=== PATIENT | female | born 1965 | race Caucasian/White ===

== ENCOUNTER 2022-03-16 07:43 | Emergency (ER) | payer OTHER, SELFPAY ==
[2022-03-16 07:53] VITALS: BP 148/105; PULSE 97; RESP 18; TEMP 37; O2SAT 100
--- NOTE | 2022-03-16 08:07 | ED_ITS ---
HPI - Fever General: Chief Complaint: Fever Stated Complaint: cough Time Seen by Provider: 03/16/22 08:02 Source: patient Mode of arrival: ambulatory Limitations: no limitations History of Present Illness: See nursing assessment. Patient with cough and congestion and intermittent fever for the past 3 days. Patient works at [employer]. Sputum is clear. Patient denies any pain. She denies nausea vomiting or diarrhea. Associated symptoms: Deny abdominal pain, flank pain, chills, chest pain, headache(s), nausea or vomiting Review of Systems Const: Reports: fever(s); Denies: chills Eyes: Denies: change in vision ENMT: Denies: throat pain Card: Denies: chest pain or palpitations Resp: Reports: productive cough (Clear sputum); Denies: dyspnea or wheezing GI: Denies: abdominal pain, nausea or vomiting : Denies: flank pain Musc: Denies: neck pain or back pain Skin/Breast: Denies: rash or pruritus Neuro: Denies: headache(s) or numbness in extremities Psych: Denies: anxiety Ismael/Lymph: Denies: enlarged lymph nodes Physical Exam Narrative: EXAM NARRATIVE: Occasional nonproductive cough Const: COMMON NORMALS: no acute distress, patient oriented x3, no limitations and well nourished GENERAL APPEARANCE: cooperative HENMT: COMMON NORMALS: normocephalic and atraumatic HEAD & SCALP: normocephalic and atraumatic FACE & SINUS: normal facial exam Eye: COMMON NORMALS: EOMs intact bilaterally Neck/C-Spine: COMMON NORMALS: full ROM, no lymphadenopathy, supple and no meningeal signs GENERAL: Yes normal visual inspection Lymph: LYMPHATIC: no lymphadenopathy noted Chest: COMMONS NORMALS: normal inspection of the chest and normal palpation of entire chest wall CHEST: No Ecchymosis present and No rash Resp: COMMON NORMALS: normal respiratory effort, No retractions and clear to auscultation bilaterally EFFORT & INSPECTION: No respiratory distress AUSCULTATION: clear to auscultation bilaterally Cardio: COMMON NORMALS: regular rate, regular rhythm and Peripheral pulses 2+ throughout JUGULAR VENOUS DISTENTION: no JVD RATE: regular rate RHYTHM: regular rhythm PERIPHERAL PULSES: Peripheral pulses 2+ throughout GI: COMMON NORMALS: Normal to inspection, nondistended, normoactive bowel sounds present and non-tender : COMMON NORMALS: Yes no CVA tenderness BLADDER/KIDNEY EXAM: Yes no CVA tenderness Back/Pelvis: COMMON NORMALS: no CVA tenderness Extremity: COMMON NORMALS: normal to inspection, full ROM and capillary refill normal Neuro: COMMON NORMALS: patient oriented x3, CN's II-XII intact bilaterally, no focal motor deficits and no sensory deficits noted MENINGEAL SIGNS: Yes no meningeal signs Psych: COMMON NORMALS: mental status grossly normal and Normal thought process present THOUGHT PROCESS: Normal thought process present Skin: COMMON NORMALS: no rashes or lesions noted and no wounds GENERAL SKIN EXAM: no rashes or lesions noted Course Vital Signs: Vital signs: Vital Signs Temperature 98.6 F 03/16/22 07:53 Pulse Rate 89 03/16/22 08:46 Respiratory Rate 16 03/16/22 08:46 Blood Pressure 132/88 03/16/22 08:46 Pulse Oximetry 94 03/16/22 08:46 MDM - Fever Medical Decision Making Acute bronchitis versus pneumonia. Possible influenza versus COVID. Patient states she is up-to-date on her COVID vaccines We will treat with IV Rocephin and IV Zithromax for treatment of community- acquired pneumonia Lab Data 03/16/22 08:43 03/16/22 08:43 Radiology Impressions Chest X-Ray 03/16/22 08:06 IMPRESSION: Lateral left mid lung zone airspace opacity. Pneumonitis is difficult to exclude. Clinical correlation is recommended. Laboratory Results WBC 4.6 10^3/uL (4.0-10.0) 03/16/22 08:43 RBC 4.78 10^6/uL (4.1-5.3) 03/16/22 08:43 Hgb 14.1 g/dL (11.5-15.3) 03/16/22 08:43 Hct 43.3 % (37.0-47.0) 03/16/22 08:43 MCV 90.6 fl (81-99) 03/16/22 08:43 MCH 29.5 pg (28.0-34.0) 03/16/22 08:43 MCHC 32.6 g/dL (30.0-36.0) 03/16/22 08:43 RDW 11.9 % (12.1-15.1) L 03/16/22 08:43 Plt Count 238 10^3/cmm (130-400) 03/16/22 08:43 MPV 9.8 fL (7.4-10.4) 03/16/22 08:43 Neut % (Auto) 75.7 % 03/16/22 08:43 Lymph % (Auto) 14.5 % 03/16/22 08:43 [place] % (Auto) 8.5 % 03/16/22 08:43 Eos % (Auto) 0.2 % 03/16/22 08:43 Baso % (Auto) 0.7 % 03/16/22 08:43 Neut # (Auto) 3.49 10^3/uL (1.8-7.7) 03/16/22 08:43 Lymph # (Auto) 0.7 10^3/uL (0.8-4.8) L 03/16/22 08:43 [place] # (Auto) 0.4 10^3/uL (0.2-0.9) 03/16/22 08:43 Eos # (Auto) 0.0 10^3/uL (0.0-0.8) 03/16/22 08:43 Baso # (Auto) 0.0 10^3/uL (0.0-0.1) 03/16/22 08:43 Nucleated RBC % (auto) 0 % 03/16/22 08:43 Nucleated RBCs # 0.0 /100WBC 03/16/22 08:43 Sodium 137 mmol/L (136-145) 03/16/22 08:43 Potassium 3.5 mmol/L (3.5-5.1) 03/16/22 08:43 Chloride 100 mmol/L (98-107) 03/16/22 08:43 Carbon Dioxide 25 mmol/L (22-29) 03/16/22 08:43 Anion Gap 15.5 (5-19) 03/16/22 08:43 BUN 13 mg/dL (6-20) 03/16/22 08:43 Creatinine 0.6 mg/dL (0.5-0.9) 03/16/22 08:43 GFR Calculation 102.7 mL/min (90-130) 03/16/22 08:43 Glucose 111 mg/dL (65-115) 03/16/22 08:43 Calculated Osmolality 285 mOsm/kg (285-295) 03/16/22 08:43 Calcium 9.9 mg/dL (8.5-10.5) 03/16/22 08:43 Influenza Type A Ag negative (Negative) 03/16/22 Unknown Influenza Type B Ag negative (Negative) 03/16/22 Unknown SARS-CoV-2 Ag (Rapid) negative (Negative) 03/16/22 Unknown Imaging Data CXR: My impression: Mild left lower lobe infiltrate consistent with early pneumonia. Radiologist's impression: Ordering Provider/Ordering MD: Kenan Walsh MD Date of Service: 03/16/22 Procedure(s): XR chest 1V portable [id number] Accession Number(s): [id number] Report Number: [id number] PROCEDURE INFORMATION: Exam: XR Chest Exam date and time: 03/16/2022 8:11 AM Age: 56 years old Clinical indication: Cough TECHNIQUE: Imaging protocol: Radiologic exam of the chest. Views: 1 view. Other technique: Frontal portable upright view of the chest. COMPARISON: No relevant prior studies available. FINDINGS: Lungs: Lateral left mid lung zone airspace opacity. The pulmonary vasculature is normal. The lungs are otherwise peripherally clear bilaterally. Pleural spaces:? No pleural effusion. No pneumothorax. Heart/Mediastinum: The heart is normal in size and contour. Bones/joints: Mild rightward thoracic and leftward thoracolumbar spinal curvature appear XR/XR chest 1V portable [id number] IMPRESSION: Lateral left mid lung zone airspace opacity. Pneumonitis is difficult to exclude. Clinical correlation is recommended. ? Dictated By: Bruno Rocha MD Signed By: Bruno Rocha MD Signed Date/Time: 03/16/22918 Discharge Plan Discharge Patient Disposition: Home Clinical Impression: Community acquired pneumonia Qualifiers: Laterality: left Lung location: lower lobe of lung Qualified Code(s): J18.9 - Pneumonia, unspecified organism Condition: Stable Prescriptions: New Zithromax Z-Edu 250 mg tablet See Rx Instructions .ROUTE .COMPLEX Qty: 6 0RF Rx Instructions: take 500 mg today (day 1), then 250 mg for 4 days (days 2-5) cephalexin 500 mg capsule 500 mg PO QID 7 Days Qty: 28 0RF Rx Instructions: for infection Discharge Orders: Discharge ED (Routine); Ordered 03/16/22 Ordered By: Kenan Walsh Referrals: [facility], [Primary Care Provider] - Discharge Activity: Increase activity as tolerated Patient Instructions: Community Acquired Pneumonia (ED), Opioid Safety, Pain Management Activity Restrictions/Additional Instructions: Rest. Start cephalexin and Z-Edu antibiotics in approximately 16 hours. Follow-up with family doctor next week for recheck. 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
[2022-03-16 08:46] VITALS: BP 132/88; PULSE 89; RESP 16; O2SAT 94
[2022-03-16 09:08] LABS: Basophils % 0.7 %; Eosinophils % 0.2 %; Hematocrit 43.3 % (37.0-47.0); Hemoglobin 14.1 g/dL (11.5-15.3); Lymphocytes # 0.7 10^3/uL (0.8-4.8); Lymphocytes % 14.5 %; Mean Corpuscular HGB Conc 32.6 g/dL (30.0-36.0); Mean Corpuscular Hemoglobin 29.5 pg (28.0-34.0); Mean Corpuscular Volume 90.6 fl (81-99); Mean Platelet Volume 9.8 fL (7.4-10.4); Monocytes # 0.4 10^3/uL (0.2-0.9); Monocytes % 8.5 %; Neutrophils # 3.49 10^3/uL (1.8-7.7); Neutrophils % 75.7 %; Nucleated Red Blood Cells % 0 %; Platelet Count 238 10^3/cmm (130-400); Red Blood Count 4.78 10^6/uL (4.1-5.3); Red Cell Distribution Width 11.9 % (12.1-15.1); White Blood Count 4.6 10^3/uL (4.0-10.0)
[2022-03-16 09:13] LABS: Influenza A by IFA negative (Negative); Influenza B by IFA negative (Negative); SARS Covid-2 Antigen negative (Negative)
[2022-03-16] MEDS: cefTRIAXone 1,000 MG in sodium chloride 0.9% (plus) 50 ML 100 MG IV (09:19)
[2022-03-16 09:29] LABS: Anion Gap 15.5 (5-19); Blood Urea Nitrogen 13 mg/dL (6-20); Calcium 9.9 mg/dL (8.5-10.5); Carbon Dioxide 25 mmol/L (22-29); Chloride 100 mmol/L (98-107); Glomerular Filtration Rate 102.7 mL/min (90-130); Glucose 111 mg/dL (65-115); Osmolality Calculated 285 mOsm/kg (285-295); Potassium 3.5 mmol/L (3.5-5.1); Sodium 137 mmol/L (136-145)
[2022-03-16] MEDS: azithromycin 500 MG in sodium chloride 0.9% 250 ML 250 MG IV (09:54)
[2022-03-16 10:39] VITALS: BP 132/88; PULSE 89; RESP 16; O2SAT 94
== END 2022-03-16 10:41 | disposition home or self-care (01) ==
PROVIDERS: Emergency Provider Family Medicine
DX: J18.9 Pneumonia, unspecified organism (principal); Z20.822 Contact with and (suspected) exposure to COVID-19
CPT/HCPCS: 36415; 71045; 80048; 85025; 87040; 87426; 87804; 96365; 96367; 99284; J0456; J0696; J7050

== ENCOUNTER → 2022-11-01 08:19 | Outpatient (BNVA) | payer MEDICAID, SELFPAY | PROVIDERS: Visit Provider Family Medicine | DX: Z12.39 Encounter for other screening for malignant neoplasm of breast (principal); G25.9 Extrapyramidal and movement disorder, unspecified; I63.9 Cerebral infarction, unspecified; Z12.11 Encounter for screening for malignant neoplasm of colon; Z12.4 Encounter for screening for malignant neoplasm of cervix | CPT/HCPCS: 80053; 80061; 80307; 81000; 83036; 84439; 84443; 85025 ==

== ENCOUNTER 2022-12-08 13:14 | Outpatient (CLI) | payer MEDICAID, SELFPAY ==
--- NOTE | 2022-12-08 13:31 | MM_ITS ---
WS: [id number] BILATERAL 3D TOMOSYNTHESIS DIGITAL SCREENING MAMMOGRAPHY WITH CAD CLINICAL INFORMATION: screening HISTORY: Screening mammogram. No current complaints. COMPARISON: None. TECHNIQUE: Bilateral CC and MLO views. FINDINGS: Scattered fibroglandular densities bilaterally. Partially obscured ovoid mass lower inner LEFT breast measuring 2.9 x 3.3 cm. Recommend LEFT diagnostic mammography and ultrasound in further evaluation. A few incidental punctate calcifications. IMPRESSION: MM/[place] [id number] BI-RADS: 0-Incomplete: Need additional imaging evaluation FOLLOW UP: Need Additional Imaging Recommend LEFT diagnostic mammography and ultrasound in further evaluation.
== END 2022-12-08 13:15 | disposition home or self-care (01) ==
PROVIDERS: Visit Provider Family Medicine
DX: Z12.31 Encounter for screening mammogram for malignant neoplasm of breast (principal)
CPT/HCPCS: 77063; 77067

== ENCOUNTER 2022-12-15 14:24 | Outpatient (CLI) | payer MEDICAID, SELFPAY ==
--- NOTE | 2022-12-15 14:30 | MR_ITS ---
WS: [id number] MRI HEAD WITH CONTRAST TECHNIQUE: Sagittal T1, T2 axial, T2 axial FLAIR, axial susceptibility weighted imaging, axial diffus ion weighted images, and coronal T2 images were obtained. Pre and post-T1 axial and post T1 coronal i mages. ADC and FSPGR images. CLINICAL INFORMATION: movement disorder, CVA COMPARISON: None. FINDINGS: No evidence of restricted diffusion to suggest acute ischemia. Ventricular system and basilar cistern s are patent. Mild small vessel changes. Moderate parenchymal volume loss. Normal posterior fossa. No rmal vascular flow voids at the skull base. No extra-axial fluid collections. No evidence of mass or mass effect. Mucosal thickening LEFT maxillary sinus. Mastoid air cells are well aerated. Normal posterior nasopha rynx and parapharyngeal fat. Normal optic chiasm and pituitary infundibulum. Moderate symmetric atrop hy temporal lobes and hippocampal formations. Incidental cavum septum pellucidum. No hemosiderin on s usceptibly weighted images. No abnormal gadolinium enhancement. Normal dural venous sinuses. IMPRESSION: 1. No evidence of restricted diffusion to suggest acute ischemia. 2. Mild small vessel changes with moderate parenchymal volume loss. 3. Moderate symmetric atrophy temporal lobes and hippocampal formations. 4. No hemosiderin on susceptibility-weighted images. 5. Mucosal thickening LEFT maxillary sinus.
[2022-12-15] MEDS: gadobenate dimeglumine 20 mL vial IV (15:16)
== END 2022-12-15 14:25 | disposition home or self-care (01) ==
PROVIDERS: Visit Provider Family Medicine
DX: G25.9 Extrapyramidal and movement disorder, unspecified (principal)
CPT/HCPCS: 70553; A9577

== ENCOUNTER 2023-01-11 15:01 | Outpatient (CLI) | payer MEDICAID, SELFPAY ==
--- NOTE | 2023-01-11 15:11 | MM_ITS ---
WS: [id number] LEFT 3D TOMOSYNTHESIS DIGITAL MAMMOGRAPHY WITH CAD CLINICAL INFORMATION: ABNORMAL MAMMO HISTORY: Additional views COMPARISON: 12/08/2022 TECHNIQUE: 3 views of the left breast were obtained. FINDINGS: Scattered fibroglandular densities of the left breast. Again seen is the partially obscured ovoid mas s lower inner LEFT breast measuring 3.0 x 3.3 cm. Ultrasound of this area is pending. No other signif icant changes. ULTRASOUND BREAST LEFT TECHNIQUE: Ultrasound left breast focused area of concern. CLINICAL INFORMATION: ABNORMAL MAMMO FINDINGS: Ultrasound LEFT breast lower inner quadrant. In the area of concern, at the 6 o'clock position, there is a 3.2 x 3.1 x 1.5 cm solid hypoechoic lesion 1 cm from the nipple. This corresponds to the mammog raphic findings and is suspicious. Recommend further evaluation with ultrasound-guided biopsy. IMPRESSION: MM/[place] [id number] BI-RADS: 5-Highly Suggestive of Malignancy FOLLOW UP: US Guided Biopsy Recommended
--- NOTE | 2023-01-11 15:30 | US_ITS ---
WS: [id number] LEFT 3D TOMOSYNTHESIS DIGITAL MAMMOGRAPHY WITH CAD CLINICAL INFORMATION: ABNORMAL MAMMO HISTORY: Additional views COMPARISON: 12/08/2022 TECHNIQUE: 3 views of the left breast were obtained. FINDINGS: Scattered fibroglandular densities of the left breast. Again seen is the partially obscured ovoid mas s lower inner LEFT breast measuring 3.0 x 3.3 cm. Ultrasound of this area is pending. No other signif icant changes. ULTRASOUND BREAST LEFT TECHNIQUE: Ultrasound left breast focused area of concern. CLINICAL INFORMATION: ABNORMAL MAMMO FINDINGS: Ultrasound LEFT breast lower inner quadrant. In the area of concern, at the 6 o'clock position, there is a 3.2 x 3.1 x 1.5 cm solid hypoechoic lesion 1 cm from the nipple. This corresponds to the mammog raphic findings and is suspicious. Recommend further evaluation with ultrasound-guided biopsy. IMPRESSION: US/[place] [id number] BI-RADS: 5-Highly Suggestive of Malignancy FOLLOW UP: US Guided Biopsy Recommended
== END 2023-01-11 15:02 | disposition home or self-care (01) ==
PROVIDERS: PCP Family Medicine; Visit Provider Family Medicine
DX: R92.8 Other abnormal and inconclusive findings on diagnostic imaging of breast (principal); N63.24 Unspecified lump in the left breast, lower inner quadrant
CPT/HCPCS: 76641; 77061; G0279

== ENCOUNTER → 2023-02-16 15:47 | Outpatient (BNVA) | payer MEDICAID, SELFPAY | PROVIDERS: PCP Family Medicine; Visit Provider Family Medicine | DX: Z12.4 Encounter for screening for malignant neoplasm of cervix (principal) | CPT/HCPCS: 87624 ==

== ENCOUNTER 2023-04-04 12:21 | Outpatient (CLI) | payer MEDICAID, SELFPAY ==
--- NOTE | 2023-04-04 12:26 | US_ITS ---
WS: [id number] ULTRASOUND-GUIDED LEFT BREAST BIOPSY CLINICAL INFORMATION: L BREAST MASS FINDINGS: The procedure including risks, benefits, and complications were discussed with the patient who agreed to proceed. Using sterile technique patient was prepped and draped in the usual sterile fashion. Aft er 1% lidocaine utilizing real-time ultrasound guidance 5 14-gauge cores were obtained of the LEFT br east lesion at the 6 o'clock position, 1 cm from the nipple. Subsequently a titanium clip was placed in the biopsy cavity. No immediate complications. Pathology demonstrates Left breast, 6:00 position, 1 cm from nipple, needle core biopsy: 1. Benign breast parenchyma with focal fibroadenomatoid features and mild stromal fibrosis/hyalinizat ion. 2. No atypia or malignancy is identified. IMPRESSION: 1. Uncomplicated ultrasound-guided LEFT breast biopsy. 2. The pathology demonstrates benign breast parenchyma with focal fibroadenomatoid features. No atyp ia or malignancy. 3. Considering the size of the lesion measuring up to 3.5 cm, and risk of undersampling, consider [place] rg[facility] consultation for resection. 4. Otherwise recommend 6-month follow-up LEFT breast diagnostic mammography and ultrasound to [facility]. US/[place] [id number] BI-RADS: 3-Probably Benign FOLLOW UP: 6 Month Follow-up *The pathology is benign, however considering the large size of the lesion and risk of biopsy undersampling, consider surgical consultation for resection.
== END 2023-04-04 12:22 | disposition home or self-care (01) ==
LOC: RAD 12:21
PROVIDERS: PCP Family Medicine; Visit Provider Family Medicine
DX: D24.2 Benign neoplasm of left breast (principal); N60.32 Fibrosclerosis of left breast
CPT/HCPCS: 19083; 88305

== ENCOUNTER → 2023-04-26 15:12 | Outpatient (BNVA) | payer MEDICAID, SELFPAY | PROVIDERS: PCP Family Medicine; Visit Provider Obstetrics & Gynecology | DX: R10.2 Pelvic and perineal pain (principal); Z90.710 Acquired absence of both cervix and uterus | CPT/HCPCS: 76830 ==

== ENCOUNTER → 2023-05-07 08:14 | Outpatient (BNVA) | payer MEDICAID, SELFPAY | PROVIDERS: PCP Family Medicine; Visit Provider Obstetrics & Gynecology | DX: Z01.818 Encounter for other preprocedural examination (principal) | CPT/HCPCS: 81025 ==

== ENCOUNTER → 2023-05-16 07:56 | Outpatient (BNVA) | payer MEDICAID, SELFPAY | PROVIDERS: PCP Family Medicine; Visit Provider Obstetrics & Gynecology | DX: Z01.818 Encounter for other preprocedural examination (principal); R87.619 Unspecified abnormal cytological findings in specimens from cervix uteri | CPT/HCPCS: 81025 ==

== ENCOUNTER 2023-07-12 14:33 | Outpatient (CLI) | payer MEDICAID, SELFPAY | END 2023-07-12 14:34 | disposition home or self-care (01) | LOC: LAB 14:35 | PROVIDERS: PCP Family Medicine; Visit Provider Psychiatry & Neurology Neurology | DX: R07.9 Chest pain, unspecified (principal); I63.9 Cerebral infarction, unspecified; G25.9 Extrapyramidal and movement disorder, unspecified; R01.1 Cardiac murmur, unspecified; E78.5 Hyperlipidemia, unspecified; F25.9 Schizoaffective disorder, unspecified; R94.31 Abnormal electrocardiogram [ECG] [EKG]; Z82.49 Family history of ischemic heart disease and other diseases of the circulatory system; I27.20 Pulmonary hypertension, unspecified | CPT/HCPCS: 81271; 93005 ==

== ENCOUNTER 2023-07-18 14:06 | Outpatient (CLI) | payer MEDICAID, SELFPAY ==
--- NOTE | 2023-07-18 14:45 | USCV_ITS ---
Yoselin Varghese Age: 57 Gender: F : 1965 Exam Date: 07/18/2023 14:38 Ordering Phys: Fany Saini MD ([email or web address]) Technologist: JAZMIN [place] [facility] [place] Indication: MURMUR BP: 136 / 80 HR: 71 Rhythm: Sinus Technical Quality: Adequate MEASUREMENTS (Male / Female) Normal Values 2D ECHO LV Diastolic Diameter PLAX 2.9 cm 4.2 - 5.9 / 3.9 - 5.3 cm IVS Diastolic Thickness 1.4 cm 0.6 - 1.0 / 0.6 - 0.9 cm IVS Systolic Thickness 1.5 cm LVPW Diastolic Thickness 1.3 cm 0.6 - 1.0 / 0.6 - 0.9 cm LVPW Systolic Thickness 2.1 cm LVOT Diameter 1.9 cm LV Ejection Fraction 2D Teich 63.7 % LV Ejection Fraction MOD 2C 52.1 % LV Ejection Fraction 2C AL 53.4 % LA Diameter 3.5 cm RA Systolic Volume 4C AL 15.7 ml RA Systolic Volume 4C MOD 15.6 ml LA Sys Volume AL 11.3 cm cubed LA Sys Volume Index AL 6.4 cm cubed/m squared Aorta at Sinotubular Diameter 2.3 cm IVC Diameter 1.2 cm M-MODE LA Ao Ratio MM 1.4 AV Cusp Separation MM 1.3 cm DOPPLER AV Peak Velocity 163.0 cm/s LVOT Peak Velocity 101.0 cm/s AV Area Cont Eq vti 2.2 cm squared AV Area Cont Eq pk 1.8 cm squared MV Peak Velocity 102.0 cm/s MV Area PHT 4.1 cm squared Mitral E to A Ratio 0.7 TR Peak Velocity 191.5 cm/s TR Peak Gradient 14.7 mmHg TR Mean Velocity 177.0 cm/s TR Mean Gradient 12.7 mmHg TR Velocity Time Integral 59.5 cm TV Peak E Velocity 48.0 cm/s Right Atrial Pressure 3.0 mmHg Pulmonary Artery Systolic Pressu 17.7 mmHg PV Peak Velocity 108.0 cm/s RV Ejection Time 0.4 s FINDINGS Left Ventricle Normal left ventricular size and systolic function, EF 64%.no regional wall motion abnormalities. Mild left ventricular hypertrophy. Grade I/IV diastolic dysfunction (abnormal relaxation filling pattern), normal to mildly elevated filling pressures. Right Ventricle The right ventricle is normal in size and function. Right Atrium The right atrium is normal in size. Left Atrium Mildly increased left atrial size. Mitral Valve No gross abnormalities noted Aortic Valve No gross abnormalities noted Tricuspid Valve No gross abnormalities noted Pulmonic Valve Trace pulmonary valve regurgitation. Pericardium Normal pericardium without effusion. Aorta Normal ascending aorta dimension. IVC The inferior vena cava appears normal. CONCLUSIONS Normal left ventricular size and systolic function, EF 64%.no regional wall motion abnormalities. Mild left ventricular hypertrophy. Grade I/IV diastolic dysfunction (abnormal relaxation filling pattern), normal to mildly elevated filling pressures. Mildly increased left atrial size. No intracardiac masses. There is no pericardial effusion. No similar previous studies are available for comparison Dr Fany Saini MD [facility] (Electronically Signed) Final Date: 27 July 2023 23:31 S
== END 2023-07-18 14:07 | disposition home or self-care (01) ==
LOC: RAD 14:07
PROVIDERS: PCP Family Medicine; Visit Provider Internal Medicine Cardiovascular Disease
DX: R94.31 Abnormal electrocardiogram [ECG] [EKG] (principal); R01.1 Cardiac murmur, unspecified
CPT/HCPCS: 93306

== ENCOUNTER 2023-07-19 09:56 | Outpatient (CLI) | payer MEDICAID, SELFPAY ==
--- NOTE | 2023-07-19 | ECG_ITS ---
[facility] Test Date: 2023-07-19 Pat Name: Yoselin Varghese Department: Room: Gender: Female Recruiting Intern: : 1965 Requested By: Fany Saini Order Number: [id number] Cuco MD: Fany Saini M.D. Interpretive Statements NAME OF STUDY: LEXISCAN SESTAMIBI STRESS TEST INDICATION: Abnormal EKG; Premature ASHD PROCEDURE: At the baseline, the EKG revealed normal sinus rhythm with poor R wave progression. The baseline heart was 67 bpm with a blood pressue of 134/84 mm of Hg Lexiscan was infused over a period of 20 seconds. A total of 0.4 milligrams of Lexiscan was infused. The stress phase was continued for a total of 5 minutes. Heart rate at the end of the stress phase was 83 bpm with a blood pressure 137/88 mm of Hg. The EKG at the peak infusion revealed no significant changes. Sestamibi was injected 20 seconds after the Lexiscan infusion. Heart rate at the end of the recovery phase was 94 bpm with a blood pressure of 118/78 mm of Hg. CONCLUSION: 1. No significant EKG changes with the LexiScan infusion 2. No LexiScan induced chest pain or cardiac arrhythmia 3. Normal blood pressure and heart rate response 4. Sestamibi/sestamibi perfusion scan pending; see separate report. Electronically Signed On 07-30-2023 23:03:07 CDT by Fany Saini M.D. [id number]
[2023-07-19 10:10] VITALS: BMI 27.6
--- NOTE | 2023-07-19 10:14 | NMCV_ITS ---
NM wendy perf SPECT r/s* [id number] Yoselin Varghese Age: 57 Gender: F : 1965 Exam Date: 07/19/2023 10:59 Ordering Phys: Fany Saini MD ([email or web address]) Technologist: LAZARO Hennessy Exam Location: [facility] Indications: CORONARY ANGIOPLASTY STATUS STRESS TEST [facility] IMAGE PROTOCOL Rest/Stress 1 Lexiscan Day Radiopharmaceutical Dose (mCi) Administration Site Administered by Rest: Tc-99m 10.3 IV LAZARO Hennessy Sestamibi Stress:Tc-99m 32.5 IV LAZARO Hennessy Sestamibi Rest: 19-Jul-2023 60 Discovery 630 Stress: 19-Jul-2023 30 Discovery 630 0.4mg Lexiscan. Images obtained in supine and prone position. SPECT RESULTS Technical Quality: Excellent Raw Data Analysis: Normal Image Corrections: No attenuation or motion correction applied Summed Stress Score: 2 Summed Rest Score: 2 Summed Difference Score: 0 PERFUSION FINDINGS A small area of slightly decreased tracer uptake was noted in the apical lateral and LV apex. No significant reversibility was noted in this region FUNCTIONAL RESULTS (calculated via Gated SPECT) Stress Image LV EF (%): 69 Stress EDV (mL):67 TID: 1.09 Stress ESV (mL):21 FUNCTIONAL FINDINGS: Segmental wall motion analysis revealing no gross wall motion abnormalities IMPRESSIONS 1. Myocardial perfusion imaging revealing a small area of persistent decreased tracer uptake involving the apical lateral and apex of the left ventricle, suggesting myocardial scarring versus attrition artifact. 2. Normal LV ejection fraction of 69%. 3. LV wall motion analysis revealing no gross wall motion abnormalities. 4. Normal LV volume Low probability for coronary ischemia, based on the above findings Dr Fany Saini MD [facility] (Electronically Signed) Final Date: 19 July 2023 21:20 S
[2023-07-19] MEDS: regadenoson 0.4 Mg/5 ml Syringe 0.400000000000000022 MG IVP (11:55)
[2023-07-19 12:51] VITALS: BP 118/78; PULSE 62
== END 2023-07-19 09:57 | disposition home or self-care (01) ==
LOC: CDL 09:57
PROVIDERS: PCP Family Medicine; Visit Provider Internal Medicine Cardiovascular Disease
DX: R94.31 Abnormal electrocardiogram [ECG] [EKG] (principal)
CPT/HCPCS: 36415; 78452; 93017; 96374; A9500; J2785

== ENCOUNTER 2023-09-06 07:32 | Emergency (ER) | payer MEDICAID, SELFPAY ==
[2023-09-06 07:42] VITALS: BP 159/94; PULSE 60; TEMP 36.7; O2SAT 98; BMI 27.3
--- NOTE | 2023-09-06 08:02 | XR_ITS ---
WS: [id number] XR tibia fibula RT 2V [id number] REASON FOR EXAM: pain/bruising FINDINGS: The right tibia and fibula are intact without fracture or periosteal reaction. No focal bone lesion. No soft tissue abnormality. XR/XR tibia fibula RT 2V [id number] IMPRESSION: No significant abnormality.
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
[2023-09-06 09:00] LABS: Basophils # 0.1 10^3/uL (0.0-0.1); Basophils % 1.5 %; Eosinophils # 0.1 10^3/uL (0.0-0.8); Lymphocytes # 1.8 10^3/uL (0.8-4.8); Lymphocytes % 43.5 %; Mean Corpuscular HGB Conc 32.3 g/dL (30-55); Mean Corpuscular Hemoglobin 30.6 pg (27-33); Mean Corpuscular Volume 94.7 fl (85-98); Mean Platelet Volume 9.5 fL (7.4-10.4); Monocytes # 0.3 10^3/uL (0.2-0.9); Monocytes % 6.6 %; Neutrophils # 1.88 10^3/uL (1.8-7.7); Neutrophils % 46.2 %; Nucleated Red Blood Cells % 0 %; Platelet Count 241 10^3/cmm (157-399); Red Blood Count 4.12 10^6/uL (3.85-5.65); Red Cell Distribution Width 11.9 % (12.1-15.1); White Blood Count 4.07 10^3/uL (3.29-11.43)
[2023-09-06 09:14] LABS: Alanine Aminotransferase 17 U/L (0-33); Albumin Level 4.2 g/dL (3.5-5.2); Alkaline Phosphatase 79 U/L (35-105); Anion Gap 13.9 (5-19); Aspartate Amino Transferase 18 U/L (0-32); Blood Urea Nitrogen 8 mg/dL (8-23); Calcium 9.5 mg/dL (8.5-10.5); Carbon Dioxide 27 mmol/L (22-29); Chloride 106 mmol/L (98-107); Creatinine Clr Calc Pharmacy 74.1907; Globulin 3.1 g/dL (1.3-4.6); Glomerular Filtration Rate 85.4 mL/min (90-130); Glucose 95 mg/dL (65-115); Osmolality Calculated 294 mOsm/kg (285-295); Potassium 3.9 mmol/L (3.5-5.1); Sodium 143 mmol/L (136-145); Total Bilirubin 0.5 mg/dL (0.15-1.2); Total Protein 7.3 g/dL (6.6-8.7)
[2023-09-06 09:55] VITALS: BP 160/87; PULSE 55; O2SAT 98
== END 2023-09-06 10:06 | disposition home or self-care (01) ==
PROVIDERS: Emergency Provider Family Medicine; PCP Family Medicine
DX: K14.6 Glossodynia (principal)
CPT/HCPCS: 36415; 73590; 80053; 85025; 99284

== ENCOUNTER 2024-01-23 08:25 | Outpatient (CLI) | payer MEDICAID, SELFPAY | END 2024-01-23 08:26 | disposition home or self-care (01) | LOC: LAB 08:26 | PROVIDERS: PCP Family Medicine; Visit Provider Podiatrist Foot & Ankle Surgery | DX: Z79.899 Other long term (current) drug therapy (principal); B35.1 Tinea unguium | CPT/HCPCS: 80053 ==

== ENCOUNTER 2024-04-08 19:35 | Emergency (ER) | payer SELFPAY ==
[2024-04-08 20:00] VITALS: BP 177/104; PULSE 84; TEMP 37.1; O2SAT 97
[2024-04-09 01:18] VITALS: BP 172/104; RESP 18; O2SAT 100
--- NOTE | 2024-04-09 01:33 | XRR_ITS ---
PROCEDURE INFORMATION: Exam: XR Right Knee Exam date and time: 04/09/2024 2:17 AM Age: 58 years old Clinical indication: Injury or trauma; Fall; Blunt trauma; Knee; Right TECHNIQUE: Imaging protocol: Radiologic exam of the right knee. Views: 3 views. COMPARISON: CR XR tibia fibula RT 2V [id number] 09/06/2023 8:09 AM FINDINGS: Bones/joints: Normal. Soft tissues: There is mild anterior knee soft tissue swelling with small suprapatellar joint effusion. XR/XR knee RT 3V* [id number] IMPRESSION: No acute bony abnormality. Anterior soft tissue swelling with small suprapatellar joint effusion.
--- NOTE | 2024-04-09 01:33 | CTR_ITS ---
PROCEDURE INFORMATION: Exam: CT Head Without Contrast Exam date and time: 04/09/2024 2:28 AM Age: 58 years old Clinical indication: Injury or trauma; Fall; Blunt trauma (contusions or hematomas); Additional info: Fall, head injury TECHNIQUE: Imaging protocol: Computed tomography of the head without contrast. Radiation optimization: All CT scans at this facility use at least one of these dose optimization techniques: automated exposure control; mA and/or kV adjustment per patient size (includes targeted exams where dose is matched to clinical indication); or iterative reconstruction. COMPARISON: MR head wo/w con [id number] 12/15/2022 2:42 PM RADIATION DOSE METRICS: Total DLP (mGy-cm): 280 FINDINGS: Brain: Periventricular white matter changes likely related to chronic ischemic small vessel disease. No intracranial mass, hemorrhage or recent infarct. No midline shift or mass effect. Cerebral ventricles: No ventriculomegaly. Paranasal sinuses: There is chronic opacification of the left maxillary sinus. Mastoid air cells: Visualized mastoid air cells are well aerated. Bones: Unremarkable. No acute fracture. Soft tissues: Unremarkable. CT/CT head wo con* [id number] IMPRESSION: 1. No acute intracranial abnormality. 2. Chronic left maxillary sinus disease.
--- NOTE | 2024-04-09 01:33 | CTR_ITS ---
PROCEDURE INFORMATION: Exam: CT Maxillofacial Without Contrast Exam date and time: 04/09/2024 2:31 AM Age: 58 years old Clinical indication: Injury or trauma; Fall; Blunt trauma (contusions or hematomas); Nose and orbit/periorbital; Left; Additional info: Trauamatic facial pain TECHNIQUE: Imaging protocol: Computed tomography of the face without contrast. Radiation optimization: All CT scans at this facility use at least one of these dose optimization techniques: automated exposure control; mA and/or kV adjustment per patient size (includes targeted exams where dose is matched to clinical indication); or iterative reconstruction. COMPARISON: CT head wo con* [id number] 04/09/2024 2:28 AM RADIATION DOSE METRICS: Total DLP (mGy-cm): 535.47 FINDINGS: Paranasal sinuses: There is chronic opacification of the left maxillary sinus with areas of increased density. Orbital cavities: Orbits are normal. Globes are unremarkable. Bones: No acute fracture. Soft tissues: Unremarkable. CT/CT facial bones wo con* [id number] IMPRESSION: 1. Negative exam for facial fracture. 2. Chronic left maxillary sinus disease.
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
--- NOTE | 2024-04-09 01:33 | XRR_ITS ---
PROCEDURE INFORMATION: Exam: XR Left Wrist Exam date and time: 04/09/2024 2:13 AM Age: 58 years old Clinical indication: Injury or trauma; Fall; Blunt trauma (contusions or hematomas); Wrist; Left TECHNIQUE: Imaging protocol: Radiologic exam of the left wrist. Views: 3 or more views. COMPARISON: No relevant prior studies available. FINDINGS: Bones/joints: Normal. Soft tissues: Normal. XR/XR wrist LT min 3V* [id number] IMPRESSION: No acute findings.
--- NOTE | 2024-04-09 01:40 | W.ED.FALL ---
HPI - Fall General: Chief Complaint: Fall Stated Complaint: fell,knees/ribs/side of face pain Time Seen by Provider: 04/09/24 01:19 History of Present Illness: 58-year-old female who says she tripped down the stairs earlier today. She has a history of Sy[place]'s disease. He is having pain in her left wrist. No deformity there. Pain in her right knee. No deformity as well. Some mild swelling. She has abrasions on her face. She hit her head. She is having some left rib pain. No shortness of breath. No known loss of consciousness. No altered mental status. No focal motor deficits. Related Data Home Medications Medication Instructions Recorded Confirmed ibuprofen 200 mg capsule 200 mg PO Q6H PRN Pain 02/16/23 02/08/24 Previous Rx's Medication Instructions Recorded terbinafine HCl 250 mg tablet 250 mg PO DAILY 30 days #30 tabs 11/07/23 Allergies Allergy/AdvReac Type Severity Reaction Status Date / Time amantadine Allergy ALGY-Bliste Verified 04/08/24 20:08 r Penicillins Allergy ALGY-Rash Verified 04/08/24 20:08 Review of Systems Narrative: Constitutional symptoms: Negative except as documented in HPI. Skin symptoms: Negative except as documented in HPI. Eye symptoms: Negative except as documented in HPI. ENMT symptoms: Negative except as documented in HPI. Respiratory symptoms: Negative except as documented in HPI. Cardiovascular symptoms: Negative except as documented in HPI. Gastrointestinal symptoms: Negative except as documented in HPI. Genitourinary symptoms: Negative except as documented in HPI. Musculoskeletal symptoms: Negative except as documented in HPI. Neurologic symptoms: Negative except as documented in HPI. Psychiatric symptoms: Negative except as documented in HPI. Endocrine symptoms: Negative except as documented in HPI. PFSH ED PFSH: Medical History (HFpEF) heart failure with preserved ejection fraction Anemia Psychiatric care Encounter for screening for cervical cancer Surgical History H/O: hysterectomy Family History Mother Diabetes Denies family history of Colon cancer Ovarian cancer Heart disease Hyperlipidemia Breast cancer Hypertension Uterine cancer Thyroid disease Stroke Social History Smoking and tobacco/nicotine status: never used tobacco/nicotine Alcohol intake: current Alcohol intake frequency: holidays/special occasions only Alcohol type: wine Substance/Drug Use: never Adopted: No Caregiver/support person: No service: No Current gender identity: Female Physical Exam Narrative: EXAM NARRATIVE: General: Alert, no acute distress. Skin: Warm, dry. Head: Normocephalic, bruising to the left side of the face and around the eye.. Neck: Supple, trachea midline. Eye: Extraocular movements are intact. Ears, nose, mouth and throat: mucosa moist. Cardiovascular: Regular, Normal peripheral perfusion. Respiratory: Lungs are clear to auscultation, respirations are non-labored, breath sounds are equal, Symmetrical chest wall expansion. Gastrointestinal: Soft, Nontender, Non distended Musculoskeletal: Normal ROM, no deformity. Mild swelling of the left wrist and the right knee. Neurological: Alert and oriented, No focal neurological deficit observed. Psychiatric: Cooperative, appropriate mood & affect. Course Vital Signs: Vital signs: Vital Signs Temperature 98.8 F 04/08/24 20:00 Pulse Rate 84 04/08/24 20:00 Respiratory Rate 18 04/09/24 01:18 Blood Pressure 172/104 04/09/24 01:18 Pulse Oximetry 100 04/09/24 01:18 Oxygen Delivery Me thod Room Air 04/09/24 01:18 MDM - Fall Medical Decision Making X-ray of the right knee: No fractures or dislocations. This was reviewed and interpreted by myself the emergency room physician. I also reviewed the radiology report. X-ray of the left wrist: No fractures or dislocations. This was reviewed and interpreted by myself the emergency room physician. I also reviewed the radiology report. CT head: No acute intracranial process. no intracranial hemorrhage, no evidence of infarct. no evidence of acute fracture.This was reviewed and interpreted by myself the ER physician. CT of He chest ad without contrast: There is a mass in left breast. Patient says she knows about this she has had breast cancer in the past she has had recent mammograms. But she will follow with her primary provider. Assessment and plan: Fall Rib contusion Wrist injury Knee injury Breast mass - Discharged home - Discussed plan with patient. Answered any questions. - Evaluation and treatment of this problem were appropriate in the emergency setting. Lab Data Radiology Impressions Chest CT 04/09/24 01:33 IMPRESSION: 1. No acute abnormality related to trauma. 2. Left breast mass. Correlation with patient's most recent mammogram may be of benefit. If no recent mammogram consider diagnostic mammogram and/or diagnostic ultrasound for further evaluation. 3. Suspected chronic mucoid impaction in the right lower lobe. Consider follow-up imaging in 3-6 months to document stability. Face CT 04/09/24:33 IMPRESSION: 1. Negative exam for facial fracture. 2. Chronic left maxillary sinus disease. Head CT 04/09/24 01:33 IMPRESSION: 1. No acute intracranial abnormality. 2. Chronic left maxillary sinus disease. Knee X-Ray 04/09/24:33 IMPRESSION: No acute bony abnormality. Anterior soft tissue swelling with small suprapatellar joint effusion. Wrist X-Ray 04/09/24:33 IMPRESSION: No acute findings. All radiology interpretation(s) finalized by discharge Discharge Plan Discharge Patient Disposition: Home Clinical Impression: Fall, Facial injury, Rib contusion, Knee strain, Wrist strain, Left breast mass Condition: Stable Prescriptions: No Action terbinafine HCl 250 mg tablet 250 mg PO DAILY 30 Days Qty: 30 2RF ibuprofen 200 mg capsule 200 mg PO Q6H PRN (Reason: Pain) Discharge Orders: Discharge ED (Routine); Ordered 04/09/24 Ordered By: Cecilia Monaco Referrals: Seth Shafer MD [Primary Care Provider] - Discharge Diet: Usual diet Discharge Activity: Increase activity as tolerated Patient Instructions: Fall Prevention for Older Adults (ED), Opioid Safety, Pain Management Activity Restrictions/Additional Instructions: Please follow-up concerning possible mass in her breast. This is likely what is been there before but deserves follow-up. Thank you for choosing [facility] for your healthcare needs today. Please realize this is an emergency room and that we are providing you with a medical screening exam and this may not be complete and all inclusive of all the testing and or work up that you may need to determine your ailment or severity of your illness. You have been screened and evaluated and felt safe for discharge. Health conditions do change or evolve sometimes and as such it is important that you follow up with your Primary Doctor to be re checked, 3-5 days is a general good time frame for follow up. You are always welcome to return to the ED for re assessment if your symptoms are worsening or you have new concerns Coding Level of Care Code ED Anthropology Instructor for Janeth Conti
[2024-04-09 03:56] VITALS: BP 155/88; PULSE 64; O2SAT 97
[2024-04-09 03:57] VITALS: BP 155/88; PULSE 64; O2SAT 97
== END 2024-04-09 03:58 | disposition home or self-care (01) ==
PROVIDERS: Emergency Provider Emergency Medicine; PCP Family Medicine
DX: R07.81 Pleurodynia (principal); S83.91XA Sprain of unspecified site of right knee, initial encounter; S66.912A Strain of unspecified muscle, fascia and tendon at wrist and hand level, left hand, initial encounter; N63.20 Unspecified lump in the left breast, unspecified quadrant; I50.30 Unspecified diastolic (congestive) heart failure; W10.9XXA Fall (on) (from) unspecified stairs and steps, initial encounter
CPT/HCPCS: 70450; 70486; 71250; 73110; 73562; 99284

== ENCOUNTER 2024-09-04 21:56 | Emergency (ER) | payer MEDICAID, SELFPAY ==
[2024-09-04 22:05] VITALS: BP 176/83; PULSE 61; RESP 16; TEMP 36.7; O2SAT 99
[2024-09-05 00:21] LABS: Bilirubin Urine Negative (Negative); Blood Urine Negative (Negative); Glucose Urine UA Negative (Normal); Ketones Urine Negative (Negative); Leukocyte Esterase Urine Negative (Negative); Nitrate Urine Negative (Negative); Protein Urine Negative (Negative); Specific Gravity, Urine 1.005 (1.005-1.030); Urine Appearance Clear (CLEAR); Urine Color Yellow (Yellow); Urobilinogen Urine 0.2 mg/dL (Negative)
[2024-09-05 00:26] LABS: Add Urine Microscopic? YES; Bacteria Urine None Seen /hpf; Hyaline Casts Urine 0-4 /lpf; RBC Urine 0-2 /hpf (0-2); Squamous Epithelial Cell Urine 0-5 /hpf (0-5); WBC Urine 0-5 /hpf (0-5)
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
[2024-09-05] MEDS: HYDROcodone-acetaminophen 10-325 mg Tablet 1 TAB PO (02:10)
[2024-09-05 02:12] VITALS: BP 188/97; PULSE 62; RESP 17; O2SAT 95
== END 2024-09-05 02:15 | disposition home or self-care (01) ==
PROVIDERS: Emergency Provider Emergency Medicine; PCP Family Medicine
DX: S20.219A Contusion of unspecified front wall of thorax, initial encounter (principal); I50.30 Unspecified diastolic (congestive) heart failure; V89.2XXA Person injured in unspecified motor-vehicle accident, traffic, initial encounter
CPT/HCPCS: 71045; 81001; 99285; J9999